=== PATIENT | female | born 1975 | race American Indian/Alaskan Native ===

== ENCOUNTER 2017-07-28 15:30 | Emergency (ER) | payer OTHER ==
[~2017-07-28] VITALS: Ht 167.6 cm; Wt 120.2 kg
[~2017-07-28 15:30] MED LIST: CELEBREX200 MG PO; ENBREL50 MG/1 M1 SQ; FLUTICASONE PRO16 GM NAS; FOLIC ACID1 MG PO; HYDROCODON-ACE1 EAC8 PO; KEFLEX500 MG PO; LEVAQUIN500 MG PO; LORATADINE10 MG PO; METFORMIN HCL500 MG PO; METHYLTREXATE; POTASSIUM GLUC500 MG PO; PREDNISONE5 MG PO; PRILOSEC20 MG PO; VITAMIN D350000 UNIT PO; ZANTAC150 MG PO; ZESTRIL20 MG PO; ZOFRAN ODT4 MG SL
[2017-07-28] MEDS ORDERED: ALLEGRA ALLERG180 MG PO (15:50)
[2017-07-28] MEDS ORDERED: MAGNESIUM400 M1 PO (15:52)
[2017-07-28] MEDS ORDERED: LIPITOR10 MG PO (15:52)
[2017-07-28] MEDS ORDERED: AUGMENTIN 875-1 EACH PO (15:53)
[2017-07-28] MEDS ORDERED: NORCO 5-325 TA1 EACH PO (17:24)
--- NOTE | 2017-07-28 18:03 | EKG ---
[facility] [address] [facility] [place] [address] Signed Normal sinus rhythm Normal ECG No previous ECGs available Confirmed by LEONARDO FABIAN MD ([id number]) on 07/28/2017 6:03:38 PM Electronically Signed By: LEONARDO FABIAN MD 07/28/17 1803 PATIENT NAME: MERLYN BROWN Electrocardiogram DATE OF : 75 PHYSICIAN: LEONARDO FABIAN MD REPORT #: [id number] REPORT IS CONFIDENTIAL AND NOT TO BE RELEASED WITHOUT AUTHORIZATION
== END 2017-07-28 17:30 | disposition home or self-care (01) ==
LOC: ED 15:30
DX: R07.89 Other chest pain (principal); E11.9 Type 2 diabetes mellitus without complications; I10 Essential (primary) hypertension; Z87.891 Personal history of nicotine dependence; Z90.49 Acquired absence of other specified parts of digestive tract; Z88.6 Allergy status to analgesic agent; Z88.5 Allergy status to narcotic agent; Z79.899 Other long term (current) drug therapy; Z79.84 Long term (current) use of oral hypoglycemic drugs
CPT/HCPCS: 71020; 80053; 84484; 85025; 93005; 93010; 99284

== ENCOUNTER 2018-02-26 05:40 | Day surgery (SDC) | payer OTHER ==
[~2018-02-26] VITALS: Ht 167.6 cm; Wt 124.7 kg
--- NOTE | ~2018-02-26 | OR ---
[facility] [address] [place], [place] [address] Draft DATE OF OPERATION: 02/26/2018 SURGEON: Guera Gamino DPM PREOPERATIVE DIAGNOSES: 1. Bunion deformity right foot. 2. Talar's bunion deformity. POSTOPERATIVE DIAGNOSES: 1. Bunion deformity right foot. 2. Talar's bunion deformity. PROCEDURES: 1. Lapidus bunionectomy, or first metatarsal cuneiform fusion with Junaid, or proximal phalanx osteotomy. 2. Reverse modified chevron osteotomy 5th metatarsal. RESPIRATORY THERAPIST ASSISTANT: Bennett Concepcion DPM. ANESTHESIA: Regional with MAC. COIN PURSE FRAMER: Gustavo Woody CRNA ESTIMATED BLOOD LOSS: Only approximately 5 mL. HEMOSTASIS: With an ankle tourniquet. MATERIALS UTILIZED: 3-0 Vicryl, 4-0 Vicryl, and surgical meenakshi. A locking plate with screws for the first metatarsal cuneiform, and a nitinol staple, and two cannulated screws. PROCEDURE IN DETAIL: Regional popliteal block was given prior to entering into the operating room. The patient was brought into the operating room and sedation presented, a local anesthesia block consisting of 18 mL of 1:1 mix 0.5% ropivacaine and 2% lidocaine plain were PATIENT NAME: MERLYN BROWN OPERATIVE REPORT DATE OF : 75 REPORT #: [id number] PHYSICIAN: GUERA GAMINO DPM PCP: MARVEL ESQUEDA REPORT IS CONFIDENTIAL AND NOT TO BE RELEASED WITHOUT AUTHORIZATION [facility] [address] [facility] [place] [place] [address] Draft injected about the patient's ankle region. This was to backup a popliteal block. The right foot was then scrubbed, prepped, and draped in the usual sterile technique. An Esmarch bandage was then wrapped around the foot, and ankle region, and the left wrapped around the ankle to act as a tourniquet. Attention was then directed to the dorsal aspect of the right first metatarsal phalangeal joint region where approximately a 5 cm incision was performed both parallel and medial to the tendon of the extensor hallucis longus. The incision was then deepened through the subcutaneous tissue with care being taken to identify, and retract vital neurovascular structures. Bleeders were cauterized, and ligated as necessary. Careful dissection continued down to the level of the joint capsule. This time a linear capsulotomy was performed near the original skin incision. The joint capsule was reflected both superior, and inferior, and thus exposing the articular surface at the surgical site. It should be noted that articular surface was white, uniform, with good coloration. Medial eminence was noted on the medial aspect of the first metatarsal head, as well as some hypertrophic capsule formation. The enlargement appeared to be noninvasive with normal coloration, just both thickened in bone, and fibrous tissue. Sagittal saw was utilized to reduce the medial eminence. Curved tenotomy was utilized to resect the thickened joint capsule on the medial aspect of the first metatarsal. Attention was then directed to the first metatarsal inner space between the first infected metatarsals via the original skin incision, both sharp, and blunt dissection were continued down to the level of the conjoint tendon of the adductor hallucis, and the fibular sesamoidal ligament. Utilizing a #64 blade, and a curved tenotomy, the deep transverse ligament, the lateral fibular sesamoid ligament, and the conjoint tendon of the adductor hallucis was freed from the soft tissue, from their bony attachments. First digit was easily moved into a more corrected position, reduction of the tension on the lateral aspect was observed. Also, by manipulating the first metatarsal it appeared as though the fibular sesamoid can slip easily underneath the first metatarsal head. Attention was then redirected to the dorsal aspect of the first metatarsal. The incision was extended proximally through the first metatarsal cuneiform region, careful dissection continued down to the level of the first metatarsal cuneiform joint. The soft tissue attachments around this joint area were freed thus exposing the articular surface. A bone distractor was then applied utilizing two K wires. This joint was then distracted, sagittal saw was utilized to denude cartilage from both sides of the joint region. More bony material was resected both laterally, and plantar. The adjacent aspects of bone was then fenestrated with K wire, and the articular surface area was flush with copious amounts of sterile normal saline. The joint was then reapproximated to a more corrected position of the first metatarsal. K wire was then driven from the base of the first metatarsal into the cuneiform to act as temporary fixation. Two of the K wire were driven from the first metatarsal head region into the second metatarsals to act as additional temporary fixation. Utilizing standard AO fixation techniques, a plate and threaded screws were then inserted, compression screw extending from the midportion of the plate through the first metatarsal and then leading to the second cuneiform was also utilized. Placement PATIENT NAME: MERLYN BROWN OPERATIVE REPORT DATE OF : 75 REPORT #: [id number] PHYSICIAN: GUERA GAMINO DPM PCP: MARVEL ESQUEDA REPORT IS CONFIDENTIAL AND NOT TO BE RELEASED WITHOUT AUTHORIZATION [facility] [address] [place], [place] [address] Draft of the hardware was visualized utilizing fluoroscopy. Upon completion of the first metatarsal correction it was observed that the digit still wanted to abduct, and interfered with the second digit. Therefore, an Junaid procedure was performed by extending the skin incision distally into the midportion of the proximal phalanx, a pie shaped wedge bone was then removed from the phalanx. The distal aspect of the toe was swung into more corrected medial position, and a nitinol surgical staple was inserted for fixation. Upon completion of the Junaid, the first digit was found to lie in a good position with deformities corrected. Attention was then directed to the dorsal aspect of the fifth metatarsal phalangeal joint region, or approximately a 4 cm linear incision was performed over the distal portion of the fifth metatarsal. The incision was then deepened through subcutaneous tissue care being taken to identify, retract the vital nerves, vascular structures. Bleeders were cauterized and ligated as necessary. Careful dissection down to the level of the joint capsule was performed and then utilizing a #64 blade, linear capsulotomy was performed, and the joint capsule reflected both superior and inferior, and the articular surface was exposed at the operative site. Good coloration was observed. Lateral eminence was noted on the fifth metatarsal head with normal trabeculation, normal coloration. Some hypertrophic capsule formation was also noted in this region. Hypertrophic capsule was resected utilizing the curved tenotomy. Portion of this capsule was sent to pathology for microscopic evaluation. K wire was inserted from the lateral to the medial aspect across the metaphyseal region of the fifth metatarsal. Sagittal saw was utilized to create a chevron type osteotomy with the dorsal wing of the osteotomy being much longer than the plantar. Upon completion of the osteotomy, the capital fragment of the fifth metatarsal was led into more corrected medial position, and backed upon the shaft of the fifth metatarsal. Two screws cannulated, one was sized 2.5, and the other was 2.0, were then inserted across the osteotomy site following standard AO fixation techniques. Interoperative fluoroscopy was utilized to verify position. The surgical sites were then closed utilizing 3-0 Vicryl to reapproximate joint capsule at this point, because the ankle tourniquet was removed, and prompt hyperemic response was noted. All digits of the patients right foot, subcutaneous tissue was then closed utilizing 4-0 Vicryl and the skin was reapproximated, and coapted utilizing surgical meenakshi at both surgical sites. Postoperative injection consisting of 5 mL of 0.5% ropivacaine and 1 mL of dexamethasone phosphate was injected about the surgical sites. The foot was then cleaned with sterile normal saline, and dried. Silver Mepilex dressing was applied over the surgical dressings followed by fluff, gauze, cast padding, and Coban. The patient had tolerated both the procedure, and the anesthesia well. Capillary refill time was less than three seconds to all digits of the right foot. The patient was transported to the recovery area where following the period of postoperative monitoring the patient was discharged to home with both written, and oral instructions. PATIENT NAME: MERLYN BROWN OPERATIVE REPORT DATE OF : 75 REPORT #: [id number] PHYSICIAN: GUERA GAMINO DPM PCP: MARVEL ESQUEDA REPORT IS CONFIDENTIAL AND NOT TO BE RELEASED WITHOUT AUTHORIZATION [address] [address] Draft DEONNA Arcos/[facility] [place] /[id number] Copies: ~ PATIENT NAME: MERLYN BROWN OPERATIVE REPORT DATE OF : 75 REPORT #: [id number] PHYSICIAN: GUERA GAMINO DPM PCP: MARVEL ESQUEDA REPORT IS CONFIDENTIAL AND NOT TO BE RELEASED WITHOUT AUTHORIZATION
[~2018-02-26 05:40] MED LIST changes: +ALLEGRA ALLERG180 MG PO; +AUGMENTIN 875-1 EACH PO; +LIPITOR10 MG PO; +MAGNESIUM400 M1 PO; +NORCO 5-325 TA1 EACH PO
--- NOTE | 2018-02-26 11:20 | NUR ---
[facility] PACU AWAKE WITH OXY MASK ON AT 4L. NO C/O'S. BLOOD SUGAR 163 NO ARRIVAL. ANESTHESIA AT BEDSIDE. 1020 OXY MASK REMOVED. 1025 UP TO BATHROOM WITH ONE PERSON ASSIST. VOIDED. BACK AT BEDSIDE AT 1040. XRAY IN DEPT. 3V XRAY OF R FOOT DONE. SIPPING ON WATER. 1045 PT GETTING DRESSED. 1050 FAMILY AT BEDSIDE. DC INSTRUCTIONS GIVEN TO PT/FAMILY X2. 1054 LEFT VIA W/C WITH BOOT ON R FOOT.
== END 2018-02-26 10:54 | disposition home or self-care (01) ==
LOC: OPS 05:40 → DS 05:40 → EDSTATUS 06:45 → DS 06:45 → OPS 10:54 → DS 10:54
PROVIDERS: Podiatrist Foot & Ankle Surgery
PROC: 0QBN0ZZ Excision of Right Metatarsal, Open Approach (ICD-10-PCS; 2018-02-26)
PROC: 0QBN0ZZ Excision of Right Metatarsal, Open Approach (ICD-10-PCS; 2018-02-26)
PROC: 0SGK04Z Fusion of Right Tarsometatarsal Joint with Internal Fixation Device, Open Approach (ICD-10-PCS; principal; 2018-02-26 06:45)
DX: M21.611 Bunion of right foot (principal); M21.621 Bunionette of right foot; M20.11 Hallux valgus (acquired), right foot; M19.071 Primary osteoarthritis, right ankle and foot; J45.909 Unspecified asthma, uncomplicated; E11.9 Type 2 diabetes mellitus without complications; I10 Essential (primary) hypertension; Z88.6 Allergy status to analgesic agent; Z79.899 Other long term (current) drug therapy
CPT/HCPCS: 01480; 62322; 64445; 73620; 73630; 76942; C1713; C1769; J0690; J1100; J2250; J2370; J2704; J2765; J2795; J3010; J7120

== ENCOUNTER 2018-12-30 06:45 | Day surgery (SDC) | payer OTHER ==
[~2018-12-30] VITALS: Ht 170.2 cm; Wt 127.0 kg
[~2018-12-30 06:45] MED LIST changes: +PRILOSEC OTC20 MG PO; -PRILOSEC20 MG PO; +VICTOZA 2-0.6 MG/0.1 SUB-Q; +VITAMIN D35000 UNIT PO
[2018-12-30] MEDS ORDERED: METHOTREXATE2.5 MG PO (07:03)
--- NOTE | 2018-12-30 08:55 | NUR ---
PATIENT ARRIVES BACK FROM IMAGING. WARM BLANKET GIVEN. IV RECONNECTED. FAMILY AT BEDSIDE.
--- NOTE | 2018-12-30 12:14 | NUR ---
12/30/18 1214 Sheets,Josie 1208 PT ARRIVED TO PACU ON 2L VIA NC, PT REACTIVE TO TACTILE STIMULI AND DENIES PAIN.
[2018-12-30] MEDS ORDERED: OXYCODON-ACETA1 EAC2 PO (12:20)
[2018-12-30] MEDS ORDERED: TYLENOL325 MG PO (12:20)
--- NOTE | 2018-12-30 13:06 | NUR ---
PATIENT'S FAMILY IS PAGED. JELLO, WATER AND ICE CHIPS GIVEN. PATIENT IS EATING AND DRINKING AND TOLERATING THAT WELL. CALL LIGHT W/IN REACH. PATIENT REQUESTS ONLY 1/2 TABLET FOR PAIN PRN.
--- NOTE | 2018-12-30 14:16 | NUR ---
SECOND 1/2 OF PRN FOR PAIN GIVEN. PATIENT IS UP TO THE BATHROOM W/RN STANDBY. PATIENT AMBULATES WELL AND DENIES DIZZINESS. PATIENT VOIDS AND REPORTS FEELING HER BLADDER IS EMPTY. SCANT AMOUNT OF URINE NOTED TO HAT. PATIENT REPORTS SHE BELIEVES SHE MISSED THE HAT. PATIENT IS BACK IN BED. MORE ICED WATER IS GIVEN. FAMILY REMAINS @ BEDSIDE. PATIENT DENIES ADDITIONAL NEEDS AT THIS TIME.
--- NOTE | 2018-12-31 10:55 | OR ---
[facility] [address] [place], [place] [address] Signed DATE OF OPERATION: 12/30/2018 SURGEON: Johanne Sousa MD PREOPERATIVE DIAGNOSES: 1. Left upper outer quadrant abnormal mammogram (microcalcifications), not amenable to image-guided core biopsy. 2. Morbid obesity. POSTOPERATIVE DIAGNOSES: 1. Left upper outer quadrant abnormal mammogram (microcalcifications), not amenable to image-guided core biopsy. 2. Morbid obesity. PROCEDURE PERFORMED: Left needle localized excisional breast biopsy. ANESTHESIA: General LMA; steven Wick CRNA. INDICATION: This morbidly obese 43-year-old woman underwent screening mammogram under the direction of ÁNGEL Paniagua, at [facility]. She was found to have microcalcifications. They were not considered amenable to core biopsy by image guidance by the radiologist. On that basis, a needle-localized excisional biopsy has been recommended. The risks of bleeding, infection, cosmetic deformity, need for additional treatment and other unforeseen complications were reviewed with the patient in detail. She understands and wished to proceed with needle localized excisional biopsy. FINDINGS: Good wire localization was noted. Wire emanating from the lateral aspect of the left breast in the natural breast crease. This site was used as incision as well. Wide excision was undertaken. The specimen radiograph during operation confirmed the lesion to be in the specimen excised. There was no untoward bleeding. The breast was mostly replaced with fat. I felt no suspicious mass with the excised tissue. DESCRIPTION OF PROCEDURE: The patient was brought to the operating room after being received from the radiology suite with the wire emanating from the left breast. She was given a general anesthetic by LMA technique. Preoperative antibiotic Ancef was given. Sequential compression Electronically Signed By: JOHANNE SOUSA MD 12/31/18 1055 PATIENT NAME: MERLYN BROWN OPERATIVE REPORT DATE OF : 75 REPORT #: [id number] PHYSICIAN: JOHANNE SOUSA MD PCP: MARVEL ESQUEDA REPORT IS CONFIDENTIAL AND NOT TO BE RELEASED WITHOUT AUTHORIZATION [facility] [address] [place], [place] [address] Signed device stockings used and heparin subcutaneously administered. Review of her radiographs showed that the wire to be well localized in relation to the microcalcifications in question. The needle was trimmed and spray preparation of breast was undertaken with Betadine spray solution. The area was draped sterilely. A curvilinear incision was made along the line of natural skin crease in the lateral aspect of the breast. Dissection carried through the dermis with electrocautery. The wire delivered into the wound. An Allis clamp was used to grasp the parenchyma of the breast in continuity with the wire and using wide excision using electrocautery device, excision was undertaken. The specimen was excised beyond the needle tip. The specimen was oriented with a short stitch superior, long stitch lateral and sent for specimen radiograph. It was later reported by Dr. Zimmer that the microcalcifications in question were included in the excised specimen. Irrigation was undertaken in the depths of the wound. There was no sign of bleeding. The wound was closed in layers with interrupted 2-0 Vicryl and a running subcuticular 3-0 Vicryl for the skin. Steri-Strips were applied as was a Mepilex silver sponge dressing and an OpSite. She tolerated procedure well. There was essentially no blood loss. MD JASSON Batista/[facility] /[id number] cc: ÁNGEL Edwards Copies: MARVEL ESQUEDA ~ Electronically Signed By: JOHANNE SOUSA MD 12/31/18 1055 PATIENT NAME: MERLYN BROWN OPERATIVE REPORT DATE OF : 75 REPORT #: [id number] PHYSICIAN: JOHANNE SOUSA MD PCP: MARVEL ESQUEDA REPORT IS CONFIDENTIAL AND NOT TO BE RELEASED WITHOUT AUTHORIZATION
== END 2018-12-30 14:25 | disposition home or self-care (01) ==
LOC: DS 06:45 → OPS 06:45 → EDSTATUS 08:30 → MAM 08:30 → OPS 14:25
PROVIDERS: Surgery
PROC: 0HBU0ZX Excision of Left Breast, Open Approach, Diagnostic (ICD-10-PCS; principal; 2018-12-30 09:30)
DX: N60.32 Fibrosclerosis of left breast (principal); N60.02 Solitary cyst of left breast; N60.92 Unspecified benign mammary dysplasia of left breast; E66.01 Morbid (severe) obesity due to excess calories; E11.9 Type 2 diabetes mellitus without complications; E78.5 Hyperlipidemia, unspecified; K21.9 Gastro-esophageal reflux disease without esophagitis; I10 Essential (primary) hypertension; M06.89 Other specified rheumatoid arthritis, multiple sites; J45.909 Unspecified asthma, uncomplicated; Z88.6 Allergy status to analgesic agent; Z88.5 Allergy status to narcotic agent; Z79.899 Other long term (current) drug therapy; Z68.41 Body mass index [BMI] 40.0-44.9, adult; Z87.891 Personal history of nicotine dependence; Z79.52 Long term (current) use of systemic steroids
CPT/HCPCS: 00404; 76098; J0690; J1100; J1644; J1885; J2250; J2405; J2704; J3475; J7120

== ENCOUNTER 2019-06-07 11:28 | Emergency (ER) | payer OTHER ==
[~2019-06-07] VITALS: Ht 170.2 cm; Wt 122.5 kg
--- OUTSIDE RECORDS SUMMARY | ~2019-06-07 | XMS | Clinical Summary ---
Demographics + + + | Address | [address] | | | [place] [address] | + + + | Home Phone | | + + + | Preferred Language | Unknown | + + + | Marital Status | Single | + + + | Yazidi Affiliation | Unknown | + + + | Race | Unknown | + + + | Ethnic Group | Unknown | + + + Author + + + | Author | [facility] | | | and [place] | + + + | Organization | [facility] | | | and [place] | + + + | Address | Unknown | + + + | Phone | Unavailable | + + + Support + + +---------+ + | Name | Relationship | Address | Phone | + + +---------+ + | Aletha Myles | ECON | Unknown | | + + +---------+ + Care Team Providers + +------+ + | Care Legal Stenographer Name | Role | Phone | + +------+ + | Pcp, Prov Inactive | PCP | | + +------+ + Allergies Not on File Medications Not on file Active Problems + + + | Problem | Noted Date | + + + | Other chest pain | 04/02/2014 | + + + Social History + +-------+ +--------+------+ | Tobacco Use | Types | Packs/Day | Years | Date | | | | | Used | | + +-------+ +--------+------+ | Never Assessed | | | | | + +-------+ +--------+------+ + + + | Sex Assigned at | Date Recorded | | | | + + + | Not on file | | + + + + + + + | Job Start Date | Occupation | Industry | + + + + | Not on file | Not on file | Not on file | + + + + + + + + | Travel History | Travel Start | Travel End | + + + + + + | No recent travel history available. | + + Last Filed Vital Signs + + + + | Vital Sign | Reading | Time Taken | + + + + | Blood Pressure | - | - | + + + + | Pulse | - | - | + + + + | Temperature | - | - | + + + + | Respiratory Rate | - | - | + + + + | Oxygen Saturation | - | - | + + + + | Inhaled Oxygen | - | - | | Concentration | | | + + + + | Weight | 130.2 kg (287 lb) | 2014 1000 PDT | + + + + | Height | - | - | + + + + | Body Mass Index | - | - | + + + + Plan of Treatment +--------+---------+ + + + | Date | Type | Specialty | Care Team | Description | +--------+---------+ + + + | 07/06/ | Office | Neurology | Edin Blancas MD [address] | | | 2019 | Visit | | [address] | | | | | | [address] [address] | | | | | | [place] [address] | | | | | | [phone] | | | | | | | | +--------+---------+ + + + + + + + + | Health Maintenance | Due Date | Last Done | Comments | + + + + + | Vaccine: | | | | | Dtap/Tdap/Td (1 - | 4 | | | | Tdap) | | | | + + + + + | Cervical Cancer | | | | | Screening (Pap) | 5 | | | + + + + + | Vaccine: Influenza | | | | | (#1) | 9 | | | + + + + + Results Not on filefrom Last 3 Months Insurance + +--------+ +--------+ +---------+--------+ | Payer | Benefi | Subscriber | Effect | Phone | Address | Type | | | t Plan | ID | azra | | | | | | / | | Dates | | | | | | Group | | | | | | + +--------+ +--------+ +---------+--------+ | [employer] | HEALTH | [id number] | | [phone] | | PPO | | | COMP | | 014-Pr | 7 | | | | | PPO | | esent | | | | + +--------+ +--------+ +---------+--------+ | [facility] | IHS | [id number] | | | | Indemn | | SERVICE | YELLOW | | 014-Pr | | | ity | | | HAWK | | esent | | | | + +--------+ +--------+ +---------+--------+ + +--------+ +--------+ + + | Guarantor Name | Accoun | Relation to | Date | Phone | Billing Address | | | t Type | Patient | of | | | | | | | | | | + +--------+ +--------+ + + | Miguel Ángel Myles | Person | Self | [birth year] | [address] | | | jacob/Rojelio | | 1975 | [phone] | [place] [address] | | | aletha | | | 2 (Home) | | + +--------+ +--------+ + + Advance Directives Patient has advance care planning documents on file. For more information, please contact:[facility] [place] [address]"
--- OUTSIDE RECORDS SUMMARY | ~2019-06-07 | XMS | Clinical Summary ---
Demographics + + + | Address | [address] | | | [place] [address] | + + + | Home Phone | | + + + | Preferred Language | Unknown | + + + | Marital Status | Unknown | + + + | Confucianism Affiliation | Unknown | + + + | Race | Unknown | + + + | Ethnic Group | Unknown | + + + Author + + + | Author | [facility] (Historical as of | | | 04-25-19) | + + + | Organization | [facility] (Historical as of | | | 04-25-19) | + + + | Address | Unknown | + + + | Phone | Unavailable | + + + Care Team Providers + +------+ + | Care Clam Bed Laborer Name | Role | Phone | + +------+ + PP | Unavailable | + +------+ + Allergies Not on File Current Medications Not on file Active Problems Not on file Social History + +-------+ +--------+------+ | Tobacco [...] on file | | + + + Last Filed Vital Signs + + + + | Vital Sign | Reading | Time Taken | + + + + | Blood Pressure | 132/76 | 10/05/2009 1:05 PM PST | + + + + | Pulse [...] + + + + | Weight | 84.8 kg (187 lb) | 10/05/2009 1:05 PM PST | + + + + | Height | - | - | + + + + | Body Mass Index | - | - | + + + + Plan of Treatment +--------+---------+ + + + | Date | Type | Specialty | Care Team | Description | +--------+---------+ + + + | 07/06/ | Office | | Edin Blancas MD [address] | | | 2018 | Visit | | [facility] | | | | | | [place] [address] | | | | | | [phone] | | | | | | | [...] + + | Vaccine: Influenza | | 05/23/2018, 06/10/2017 | | | (#1) | 9 | | | + + + + + Results Not on filefrom Last 3 Months Insurance + +--------+ +------+-------+---------+ | Payer | Benefi | Subscriber | Type | Phone | Address | | | t Plan | ID | | | | | | / | | | | | | | Group | | | | | + +--------+ +------+-------+---------+ | COMMERCIAL OTHER | COMMER | [id number] | | | | | | CIAL | | | | | | | GENERI | | | | | | | C PLAN | | | | | + +--------+ +------+-------+---------+ + +--------+ +--------+ + + | Guarantor Name | Accoun | Relation to | Date | Phone | Billing Address | | | t Type | Patient | of | | | | | | | | | | + +--------+ +--------+ + + | MERLYN MYLES | Person | Self [birth year] | Home: | [address] | | | al/Fam | | 1974 | [phone] | [place] [address] | | | aeltha | | | [phone] | | + +--------+ +--------+ + +"
--- OUTSIDE RECORDS SUMMARY | ~2019-06-07 | XMS | Clinical Summary ---
Demographics + + + | Address | [address] | | | [place] [address] | + + + | Home Phone | | + + + | Preferred Language | Unknown | + + + | Marital Status | Unknown | + + + | Mormon Affiliation | Unknown | + + + | Race | Unknown | + + + | Ethnic Group | Unknown | + + + Author + + + | Author | [facility] (Historical as of | | | 04-25-19) | + + + | Organization | [facility] (Historical as of | | | 04-25-19) | + + + | Address | Unknown | + + + | Phone | Unavailable | + + + Care Team Providers + +------+ + | Care Body Worker Name | Role | Phone | + [...] | 2018 | Visit | | [facility] | | | | | | [place] [address] | | | | | | [phone] | | | | | | | [...] +------+-------+---------+ | COMMERCIAL OTHER | COMMER | [id number] | | | | | | CIAL [...] | | al/Fam | | 1974 | [phone] | [place] [address] | | | aletha | | | [phone] | | + +--------+ +--------+ + +"
--- OUTSIDE RECORDS SUMMARY | ~2019-06-07 | XMS | Clinical Summary ---
Demographics + + + | Address | [address] | | | [place] [address] | + + + | Home Phone | | + + + | Preferred Language | Unknown | + + + | Marital Status | Single | + + + | Adventism Affiliation | Unknown | + + + | Race | Unknown | + + + | Ethnic Group | Unknown | + + + Author + + + | Author | [facility] | | | and [place] | + + + | Organization | [facility] | | | and [...] Team Providers + +------+ + | Care Audio Tape Librarian Name | Role | Phone | + [...] | | | | | | [place] [phone] | | | | | | [phone] | | | | | | | [...] +--------+ +---------+--------+ | [employer] | HEALTH | [id number] | | [phone] | | PPO | | | COMP | | [id number]-Pr | 7 | | | | | PPO | | esent | | | | + +--------+ +--------+ +---------+--------+ | [facility] | IHS | [id number] | | | | Indemn | | [...] | | jacob/Rojelio | | 1975 | [phone] | [place] [address] | | | aletha | | | 2 (Home) | | + +--------+ +--------+ + + Advance Directives Patient has advance care planning documents on file. For more information, please contact:[facility] [place] [address]"
[~2019-06-07 11:28] MED LIST changes: +METHOTREXATE2.5 MG PO; +OXYCODON-ACETA1 EAC2 PO; +TYLENOL325 MG PO
--- OUTSIDE RECORDS SUMMARY | 2019-06-07 11:30 | XMS ---
PreManage Notification: MERLYN MYLES Security Reception Specialist Events No recent Security Events currently on file CRITERIA MET - A[facility]U CARE PROVIDERS Cale Lincolnzara Myles Primary Care Current PHONE: Unknown Nimisha Spain Primary Care Callie TOLEDO PHONE: [phone] silvina Case or Affirmative Action Specialist Current PHONE: Unknown Apolonia Purvis Current Orthopedic Surgery \T\ Fracture Clinic PHONE: Unknown Alpesh has no Care Guidelines for this patient. Stu VISIT COUNT (12 MO.) 1 DIMITRIS Trevino TOTAL 1 NOTE: Visits indicate total known visits. ED/UCC VISIT TRACKING (12 MO.) 06/07/2019 11:29 DIMITRIS N[place] OR TYPE: Emergency COMPLAINT: - LEFT ARM PAIN, INJ INPATIENT VISIT TRACKING (12 MO.) No inpatient visits to display in this time frame [email or web address]
[2019-06-07] MEDS ORDERED: LIDOCAINE1 EACH TOP (12:26)
== END 2019-06-07 12:56 | disposition home or self-care (01) ==
LOC: ED 11:28
DX: M79.602 Pain in left arm (principal); I10 Essential (primary) hypertension; E11.9 Type 2 diabetes mellitus without complications; Z88.5 Allergy status to narcotic agent; Z88.6 Allergy status to analgesic agent; Z79.52 Long term (current) use of systemic steroids; Z79.84 Long term (current) use of oral hypoglycemic drugs; Z79.899 Other long term (current) drug therapy
CPT/HCPCS: 99283

== ENCOUNTER 2021-01-09 23:32 | Emergency (ER) | payer OTHER ==
[~2021-01-09] VITALS: Ht 170.2 cm; Wt 121.1 kg
[~2021-01-09 23:32] MED LIST changes: +LIDOCAINE1 EACH TOP
--- NOTE | 2021-01-10 22:46 | EKG ---
[facility] [address] [place] [address] Signed Normal sinus rhythm Normal ECG When compared with ECG of 29-DEC-2018 11:35, No significant change was found Confirmed by LEEANNA GOMEZ MD ([id number]) on 01/10/2021 10:46:37 PM Electronically Signed By: LEEANNA GOMEZ MD 01/10/21 2246 PATIENT NAME: KEVINHAKEEMKyle GUTIERREZ Electrocardiogram DATE OF : 75 PHYSICIAN: LEEANNA GOMEZ MD REPORT #: [id number] REPORT IS CONFIDENTIAL AND NOT TO BE RELEASED WITHOUT AUTHORIZATION
== END 2021-01-10 03:53 | disposition home or self-care (01) ==
LOC: ED 23:32
DX: R07.89 Other chest pain (principal); E11.9 Type 2 diabetes mellitus without complications; I10 Essential (primary) hypertension; Z88.6 Allergy status to analgesic agent; Z88.8 Allergy status to other drugs, medicaments and biological substances; Z88.5 Allergy status to narcotic agent; Z79.52 Long term (current) use of systemic steroids; Z79.84 Long term (current) use of oral hypoglycemic drugs; Z79.899 Other long term (current) drug therapy
CPT/HCPCS: 71045; 80053; 83735; 84484; 85025; 85379; 93005; 93010; 99285-25

== ENCOUNTER 2021-06-26 15:03 | Emergency (ER) | payer OTHER ==
[~2021-06-26] VITALS: Ht 170.2 cm; Wt 121.1 kg
--- OUTSIDE RECORDS SUMMARY | 2021-06-26 15:10 | XMS ---
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 Care History Medical/Surgical 06/08/2019 [facility] PATIENT- [facility] ELIGIBLE \T\middot;\T\nbsp; PLEASE REFER PATIENT TO [facility] FOR NON EMERGENT MEDICAL NEEDS. \T\middot;\T\nbsp; [facility] CAN SEE PATIENTS SAME DAY FOR APTS IF PATIENT CALLS FIRST THING IN THE MORNING. E.D. VISIT COUNT (12 MO.) 2 [facility] TOTAL 2 NOTE: Visits indicate total known visits. ED/UCC VISIT TRACKING (12 MO.) 06/26/2021 15:07 [facility] TYPE: Emergency COMPLAINT: - R FOOT INJURY 01/09/2021 23:33 [facility] TYPE: Emergency COMPLAINT: - CHEST PAIN DIAGNOSES: - Type 2 diabetes mellitus without complications - Allergy status to narcotic agent - detention (current) use of oral hypoglycemic drugs - Essential (primary) hypertension - Other halfway (current) drug therapy - Allergy status to other drugs, medicaments and biological substances - Allergy status to analgesic agent - detention (current) use of systemic steroids - Other chest pain INPATIENT VISIT TRACKING (12 MO.) No inpatient visits to display in this time frame [email or web address]
== END 2021-06-26 16:18 | disposition home or self-care (01) ==
LOC: ED 15:03
DX: S90.31XA Contusion of right foot, initial encounter (principal); E11.9 Type 2 diabetes mellitus without complications; I10 Essential (primary) hypertension; M06.9 Rheumatoid arthritis, unspecified; W55.19XA Other contact with horse, initial encounter; Z88.5 Allergy status to narcotic agent; Z88.6 Allergy status to analgesic agent; Z79.52 Long term (current) use of systemic steroids; Z79.84 Long term (current) use of oral hypoglycemic drugs; Z79.899 Other long term (current) drug therapy
CPT/HCPCS: 73630; 99283-25

== ENCOUNTER 2023-05-26 08:48 | Day surgery (SDC) | payer OTHER ==
[~2023-05-26] VITALS: Ht 170.2 cm; Wt 118.2 kg
[~2023-05-26 08:48] MED LIST changes: +ACETAMINOPHEN500 MG PO; +ACTEMRA AC162 MG/0.9 SUB-Q; +AMARYL4 MG PO; +ANTACID168 MG PO; +CELECOXIB200 MG PO; +COZAAR100 MG PO; +ENBREL25 MG SUB-Q; +GABAPENTIN300 MG PO; +GABAPENTIN600 MG PO; +GLYBURIDE MICRON6 MG PO; +HYDROCODON-ACE1 EA10 PO; +JARDIANCE10 MG PO; +LORADAMED10 MG PO; +OXYCODONE HCL5 MG PO; +SENNA LAX8.6 MG PO; +TOUJEO SOL300 UNIT/1 SUB-Q; +XARELTO10 MG PO
--- OUTSIDE RECORDS SUMMARY | 2023-05-26 08:51 | XMS ---
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 Care History Medical/Surgical 06/08/2019 [facility] PATIENT- [facility] ELIGIBLE \T\middot;\T\nbsp; PLEASE REFER PATIENT TO [facility] FOR NON EMERGENT MEDICAL NEEDS. \T\middot;\T\nbsp; [facility] CAN SEE PATIENTS SAME DAY FOR APTS IF PATIENT CALLS FIRST THING IN THE MORNING. [facility] MO[facility] TOTAL 2 NOTE: Visits indicate total known visits. ED/UCC VISIT TRACKING (12 MO.) 05/26/2023 08:49 [facility] TYPE: Emergency COMPLAINT: - COLD SYMPTOMS 10/20/2022 02:05 [facility] [place] (ID) TYPE: Emergency COMPLAINT: - ABD PAIN DIAGNOSES: 1. Unspecified abdominal pain 2. Hydronephrosis with renal and ureteral calculous obstruction 3. Personal history of nicotine dependence 4. Diverticulitis of intestine, part unspecified, without perforation or abscess without bleeding 5. Urinary tract infection, site not specified 6. Contact with and (suspected) exposure to COVID-19 INPATIENT VISIT TRACKING (12 MO.) No inpatient visits to display in this time frame [email or web address]
[2023-05-26 09:39] LABS: BILIRUBIN, URINE NEGATIVE (negative); BLOOD/HGB, URINE SMALL (Negative); KETONE, URINE NEGATIVE (Negative); LEUK ESTERASE, URINE MODERATE (negative); NITRITE, URINE POSITIVE (negative); PH, URINE 5.5 (5-7)
[2023-05-26 09:42] LABS: INFLUENZA B NAA NEGATIVE (NEGATIVE); RESPIRATORY SYNCYTIAL VIR NAA NEGATIVE (NEGATIVE)
[2023-05-26 09:47] LABS: BACTERIA, URINE 4+ /hpf (negative); CRYSTALS, URINE NONE SEEN (0-1+); EPITHELIAL CELLS, URINE SQUAMOUS 1+ /lpf (0-1+); WHITE BLOOD CELLS, URINE 41-50 /HPF (0-5)
[2023-05-26 09:48] LABS: CASTS, URINE NONE SEEN \\lpf; COLLECTION TYPE, URINE CLEAN CATCH; REFLEX CULTURE, URINE Yes (No)
[2023-05-26 10:24] LABS: BASOPHILS 0.1 % (0-2); EOSINOPHILS 0.6 % (0-6); LYMPHOCYTES 12.5 % (24-44); MCH 25.4 (27-36); MCHC 32.3 g/dl (30-36); MCV 78.7 fl (81-99); MONOCYTES 10.5 % (0-12); NEUTROPHILS 76.3 % (39-80); PLATELET COUNT 202 K/uL (140-440); RBC 4.32 M/ul (4.3-5.7); RDW 18.6 (10.5-15.0)
[2023-05-26 10:33] LABS: ANION GAP 10.9 (7-21); BUN/CREATININE RATIO 12.94 (6.0-28.6); CREATININE, SERUM 0.85 mg/dL (0.55-1.02); POTASSIUM 3.9 mmol/L (3.5-5.1)
[2023-05-26] MEDS ORDERED: PAXLOVID 300-11 EACH PO ×2 (11:56→12:50)
[2023-05-26 15:45] VITALS: BP 129/72
[2023-05-26 16:17] VITALS: BP 110/65
[2023-05-26 17:18] VITALS: BP 133/70
[2023-05-26 18:21] VITALS: BP 146/81
[2023-05-26 19:57] VITALS: BP 135/71
[2023-05-27 00:53] VITALS: BP 137/63
[2023-05-27 04:54] VITALS: BP 141/60
[2023-05-27 06:04] LABS: HEMATOCRIT 32.8 % (35.0-50.0); HEMOGLOBIN 10.3 g/dL (12.0-18.0); MCHC 31.5 g/dl (30-36); MCV 79.6 fl (81-99); PLATELET COUNT 205 K/uL (140-440); RBC 4.12 M/ul (4.3-5.7); RDW 18.4 (10.5-15.0)
[2023-05-27 06:15] LABS: ANION GAP 14.7 (7-21); CALCIUM 8.8 mg/dL (8.5-10.1); CREATININE, SERUM 0.8 mg/dL (0.55-1.02); POTASSIUM 3.7 mmol/L (3.5-5.1)
[2023-05-27 06:24] LABS: LYMPHOCYTES, MANUAL DIFF 15; MONOCYTES, MANUAL DIFF 2; NEUTROPHILS, MANUAL DIFF 83
--- NOTE | 2023-05-27 08:17 | OR ---
[facility] [address] [place], [place] [address] Signed DATE OF OPERATION: 05/26/2023 SURGEON: Rowan Pierce MD PREOPERATIVE DIAGNOSIS: 1. Obstructing 5 mm right ureteral calculus with associated hydroureteronephrosis. 2. Active urinary tract infection. 3. Left flank pain with fevers for 1 week. POSTOPERATIVE DIAGNOSES: 1. Obstructing 5 mm right ureteral calculus with associated hydroureteronephrosis. 2. Active urinary tract infection. 3. Left flank pain with fevers for 1 week. 4. Early urosepsis. NAME OF PROCEDURE: Diagnostic cystoscopy with left ureteral stent insertion. ANESTHESIA: General. ESTIMATED BLOOD LOSS: None. COMPLICATIONS: None. SPECIMENS: None. DRAINS: A 6 x 26 cm double-J ureteral stent inserted in the left collecting system. INDICATIONS FOR PROCEDURE: Ms. Myles is a very pleasant 48-year-old female, who is well-known to me with a history of nephrolithiasis. In fact, she underwent right ureteral calculus extraction earlier this year in December. She presented to the emergency department today with a 1-week history of left-sided flank pain that had been progressively worsening in nature. Her mother reports to me that she had been experiencing intermittent fevers up to 102 degrees as recently as 3 days ago, however, the patient was refusing to seek treatment. Electronically Signed By: ROWAN PIERCE MD 05/27/23 0817 PATIENT NAME: MERLYN MYLES OPERATIVE REPORT DATE OF : 75 REPORT #: [id number] PHYSICIAN: ROWAN PIERCE MD PCP: AB[facility] LOVE REPORT IS CONFIDENTIAL AND NOT TO BE RELEASED WITHOUT AUTHORIZATION [facility] [address] [place] [id number] Signed She felt poorly enough this morning that she came into the emergency department with left flank pain and congestive symptoms. She was diagnosed COVID positive at that time. A CT scan revealed an obstructing 5 mm left proximal ureteral calculus with associated mild hydroureteronephrosis and perinephric stranding. She had been n.p.o. since late last night, so the decision was made to take her emergently to the operating room to undergo cystoscopy with left ureteral stent insertion. OPERATIVE FINDINGS: 1. On cystoscopy, there was no evidence of any suspicious masses, lesions, or stones. Bilateral ureteral orifices are in their normal anatomic location. 2. A 6 x 26 cm double-J ureteral stent was inserted in the left collecting system under direct visualization without difficulty. Efflux of purulent material was noted once the stent was in good position. DESCRIPTION OF PROCEDURE: After informed consent was obtained, the patient was taken back to the operating room. She was transferred from the [facility] to the OR table where general anesthesia was induced. She was placed in the dorsal lithotomy position and her genitalia were prepped and draped in standard sterile fashion. Using a 30-degree lens on a 22.5-Kinyarwanda introducer, rigid cystoscope was inserted through the urethra and into her bladder under direct visualization. Panendoscopic views of the bladder were then obtained. Please see above findings. Attention was turned to left ureteral orifice. I passed a 0.035 Sensor wire through the left ureteral orifice and up in the left collecting system. I confirmed adequate placement of the wire on fluoroscopy. Over the wire, I passed a 6 x 26 cm double-J ureteral stent into the left collecting system under direct visualization. Once I pulled the wire, I could see an adequate proximal coil within the left collecting system on fluoroscopy. The patient's bladder was then drained and the cystoscope was removed. The procedure was then terminated. The patient tolerated the procedure well without any complication. She will now be transferred to the postanesthesia care unit in stable condition. DISPOSITION: Since the patient did spike a fever again just prior to her procedure, she will be staying the night for closer observation. She will continue her IV Rocephin with her next dose of 2 g tomorrow morning. Her diabetic diet will be slowly advanced as tolerated. She has also been given IV fluids, antiemetics, and pain control. Her mother will bring her Paxlovid to the hospital where she will begin Paxlovid for her known COVID infection. I explained to the mother today that the patient will need to maintain her stent for at least a month until she fully recovers from COVID as per hospital protocol. She will likely be placed back on the OR schedule in mid June to undergo definitive stone extraction, which will include a left ureteroscopy with laser lithotripsy and basket extraction of stone fragments with a left ureteral stent Electronically Signed By: ROWAN PIERCE MD 05/27/23 0817 PATIENT NAME: MERLYN MYLES OPERATIVE REPORT DATE OF : 75 REPORT #: [id number] PHYSICIAN: ROWAN PIERCE MD PCP: [facility] LOVE REPORT IS CONFIDENTIAL AND NOT TO BE RELEASED WITHOUT AUTHORIZATION [address] [address] Signed exchange. In the interim, once she recovers here in the hospital, she will go home on two weeks worth of Levaquin 500 mg daily and will also be given oxycodone 5 mg q.6 hours as needed for pain. Rowan Pierce MD AR/MODL /[id number] Copies: ~ Electronically Signed By: ROWAN PIERCE MD 05/27/23 0817 PATIENT NAME: MERLYN MYLES OPERATIVE REPORT DATE OF : 75 REPORT #: [id number] PHYSICIAN: ROWAN PIERCE MD PCP: [facility] LOVE REPORT IS CONFIDENTIAL AND NOT TO BE RELEASED WITHOUT AUTHORIZATION
[2023-05-27] MEDS ORDERED: OXYCODONE HCL5 MG PO (09:58)
[2023-05-27] MEDS ORDERED: LEVOFLOXACIN500 MG PO (10:00)
[2023-05-27] MEDS ORDERED: PYRIDIUM200 MG PO (10:03)
[2023-05-27 10:29] VITALS: BP 146/78
[2023-05-27 12:36] VITALS: BP 127/75
--- NOTE | 2023-05-27 21:19 | EKG ---
[facility] [address] [facility] [place] [address] Signed Normal sinus rhythm Increased R/S ratio in V1, consider early transition or posterior infarct Abnormal ECG When compared with ECG of 10-DEC-2022 08:41, No significant change was found Confirmed by Juan F Rosenthal MD () on 05/27/2023 9:19:14 PM Electronically Signed By: JUAN F ROSENTHAL MD 05/27/23 2119 PATIENT NAME: MERLYN BROWN Electrocardiogram DATE OF : 75 PHYSICIAN: JUAN F ROSENTHAL MD REPORT #: [id number] REPORT IS CONFIDENTIAL AND NOT TO BE RELEASED WITHOUT AUTHORIZATION
== END 2023-05-27 12:50 | disposition home or self-care (01) ==
LOC: ED 08:48 → DS 13:14 → MS 13:15 → DS 05-27 12:50
PROVIDERS: Emergency Medicine; ATTEND Urology
PROC: 0T9680Z Drainage of Right Ureter with Drainage Device, Via Natural or Artificial Opening Endoscopic (ICD-10-PCS; principal; 2023-05-26 14:18)
DX: A41.9 Sepsis, unspecified organism (principal); U07.1 COVID-19; N13.6 Pyonephrosis
CPT/HCPCS: 00910; 36415; 74176; 76000; 80048; 81001; 83605; 85025; 87088; 87502; 94762; 96365; 96375; 99285-25; A9270; C1769; C2617; C9803; J0330; J0696; J1100; J1170; J1815; J1885; J2250; J2405; J2704; J2765; J3010; J7121; J7512; U0002

== ENCOUNTER 2023-07-08 06:50 | Day surgery (SDC) | payer OTHER ==
[2023-07-01 14:36] VITALS: BP 126/80
[~2023-07-08] VITALS: Ht 170.2 cm; Wt 120.0 kg
[~2023-07-08 06:50] MED LIST changes: +ACTEMRA AC162 MG/0.9 SQ; +CLARITIN10 M2 PO; +LEVOFLOXACIN500 MG PO; +PAXLOVID 300-11 EACH PO; +PREDNISONE20 MG PO; +PYRIDIUM200 MG PO; +RYBELSUS3 MG PO
[2023-07-08 07:08] VITALS: BP 120/64
--- NOTE | 2023-07-08 07:43 | NUR ---
PT DENIED NEEDS. MALE SYSTEM TRAINER ADMITTED TO NERVOUSNESS. BOTH CONSENTED TO PRAYER. PRAYED FOR SUCCESSFUL PROCEDURE AND AWARENSS OF DIVINE PRESENCE.
--- NOTE | 2023-07-08 09:27 | NUR ---
07/08/23 0927 Josefina [place] 0916-PT ARRIVES TO PACU ON 6 L VIA MASK. PT AWAKE AND DENIES PAIN/NAUSEA. REPORT FROM HONORIO LOPEZ. VSS. PT RESTINGBAC IN BED WITH EYES CLOSED. 0920-PT MOVED TO RA AND SATS >90%. 0926-PT DENIES PAIN/NAUSEA. AT BEDSIDE. VSS
[2023-07-08 10:12] VITALS: BP 132/58
--- NOTE | 2023-07-08 10:45 | NUR ---
1007: PT RETURNS TO UNIT VIA STRETCHER FROM RECOVERY ROOM. DROWSY ON ARRIVAL BUT WAKES TO ANSWER QUESTIONS APPROPRIATELY. VSS, RESP EVEN AND UNLABORED. DENIES PAIN. REPORTS SOME REMAINING BUT IMPROVING NAUSEA. LIGHTS DIMMED FOR PT COMFORT AND POC DISCUSSED. PT AGREEABLE AT THIS TIME. ICE WATER AND CRACKERS PROVIDED FOR WHEN READY. PT COMFORTABLE WITHOUT NEEDS CURRENTLY. CALL LIGHT WITHIN REACH
[2023-07-08 11:05] VITALS: BP 134/64
--- NOTE | 2023-07-08 11:34 | NUR ---
1105: PT AWAKE AND ALERT IN STRETCHER. VSS, RESP EVEN AND UNLABORED. ATTENTIVE AT THE BEDSIDE. CONTS TO DENY PAIN BUT REPORTS LINGERING NAUSEA WITHOUT EMESIS. ORDER RECEIVED FROM HONORIO STAFFORD FOR 0.625MG DROPERIDOL IV ONCE. PHARMACY NOTIFIED. PT WITH URGE TO URINATE. DANGLED AT THE BEDSIDE, SHUBHAM WELL. DENIES DIZZINESS AND SOB. AMBULATES TO WITH STANDBY FROM THIS RN, STEADY GAIT. SUCCESSFUL FIRST POSTOP VOID, 125MLS. RED URINE, NO CLOTS NOTED. PT BACK TO STRETCHER. SCDS IN PLACE. ANTIEMETIC PROVIDED. PT TO CALL WITH FURTHER NEEDS. CALL LIGHT WITHIN REACH
--- NOTE | 2023-07-08 12:00 | NUR ---
1200: PT USES CALL LIGHT TO NOTIFY RN OF URGE TO VOID. SCD'S DISCONNECTED AND PT AMBULATES WITH STEADY GAIT TO BATHROOM WITH RN ASSIST. PT DENIES DIZZINESS OR NAUSEA WITH AMBULATION. PT ABLE TO VOID QS AND STATES SHE FEELS READY TO DC.
[2023-07-08 12:05] VITALS: BP 152/74
--- NOTE | 2023-07-08 12:54 | NUR ---
1205: PT WATCHES TV IN STRETCHER. VSS, RESP EVEN AND UNLABORED. SL REMOVED WITH CATH TIP INTACT AND PRESSURE APPLIED TO SITE, WNL. DC INSTRUCTIONS PROVIDED AND DISCUSSED ORDERED. PT VOICES UNDERSTANDING AND DENIES QUESTIONS AND CONCERNS AT THIS TIME. DRESSES INDEPENDENTLY FOR DC. 1220: WHEELED OFF OF UNIT BY DARIEN PEREZ FOR DC. NO PHYSICAL S/S OF DISTRESS
--- NOTE | 2023-07-08 14:33 | OR ---
[facility] [address] [facility] [place] [place] [address] Signed DATE OF OPERATION: 07/08/2023 SURGEON: Rowan Pierce MD PREOPERATIVE DIAGNOSES: 1. History of urosepsis secondary to an obstructing 5 mm left midureteral calculus. 2. Multiple small left renal calculi. POSTOPERATIVE DIAGNOSES: 1. History of urosepsis secondary to an obstructing 5 mm left midureteral calculus. 2. Multiple small left renal calculi. NAME OF PROCEDURES: 1. Diagnostic cystoscopy with left retrograde pyelogram. 2. Left flexible nephroureteroscopy with laser lithotripsy and basket extraction of stone fragments. 3. Left ureteral stent exchange. ANESTHESIA: General. ESTIMATED BLOOD LOSS: Minimal. COMPLICATIONS: None. SPECIMENS: Stone fragments sent to the lab for stone analysis. DRAINS: A new 6 x 26 cm double-J ureteral stent inserted into the left collecting system. INDICATIONS FOR PROCEDURE: Merlyn is a very pleasant 48-year-old female, who is well-known to me. She has a history of recurrent nephrolithiasis and was last seen by me in mid May 2023, after she presented to the emergency department with complaints of left-sided flank pain. She had an active UTI and was also found to be septic. She also tested positive for COVID at that time. She was taken to the operating room on a semiurgent basis and underwent emergent cystoscopy with left ureteral stent insertion. She was then treated Electronically Signed By: ROWAN PIERCE MD 07/08/23 1433 PATIENT NAME: MERLYN BROWN OPERATIVE REPORT DATE OF : 75 REPORT #: [id number] PHYSICIAN: ROWAN PIERCE MD PCP: [facility] LOVE REPORT IS CONFIDENTIAL AND NOT TO BE RELEASED WITHOUT AUTHORIZATION [facility] [address] [place], [place] [address] Signed for her sepsis. She also had to wait one month from the day of her COVID diagnosis in order to qualify for elective surgery. She recently consented to undergo left ureteroscopy with stone extraction now that she has fully recovered from her COVID. She presents today to undergo definitive extraction of her left ureteral and renal calculi. OPERATIVE FINDINGS: 1. On cystoscopy, there was no evidence of any suspicious masses, lesions, or stones. There is an indwelling left ureteral stent in good position. This was removed using the stent grasper. 2. Left retrograde pyelogram revealed no evidence of any calyceal dilation or blunting of the renal calyces. There is a filling defect within the left mid ureter that is consistent with her known ureteral calculus. 3. Left flexible ureteroscopy did reveal an actively obstructing stone in the midportion of the left ureter. This is consistent with her known 5 mm stone. The stone was fragmented using a holmium laser at 8 and 0.6 settings. Some of its stone was dusted and the remaining portion of the stone was extracted intact using a Zero tip basket. 100% of this particular stone was successfully extracted. 4. Left flexible nephroscopy revealed multiple small stones measuring around 1-2 mm. These were also extracted from the left kidney in toto using a Zero tip basket without difficulty. 5. At the end of the procedure, a fresh 6 x 26 cm double-J ureteral stent was inserted into the patient's left collecting system under direct visualization without difficulty. DESCRIPTION OF PROCEDURE: After informed consent was obtained, the patient was taken back to the operating room. She was transferred from the [facility] to the operating room table, where general anesthesia was induced. She was placed in the dorsal lithotomy position and her genitalia were prepped and draped in standard sterile fashion. Using a 30-degree lens on a 22.5-Kiswahili introducer, rigid cystoscope was inserted through the urethra into her bladder under direct visualization. Panendoscopic views of the bladder were then obtained. Please see above findings. The indwelling ureteral stent was removed to the level of the urethral meatus using a stent grasper. A 0.035 Sensor wire was passed into the lumen of the stent and up into the left collecting system. The indwelling stent was removed fully intact and the Sensor wire was now in a good position within the left collecting system. Over the wire, I passed a 13/15 ureteral access sheath into the left ureter. I initially passed the sheath up to the level of the obstructing calculus. I passed my flexible ureteroscope through the sheath and immediately came upon the stone. The stone was fragmented using a holmium laser at 8 and 0.6 settings. Please see above findings. Once the stone was successfully extracted, I reinserted the obturator and the Sensor wire and passed the sheath up further into the left kidney. A left retrograde pyelogram was performed via the sheath. Please see above findings. I then passed a flexible ureteroscope through the sheath and into the left renal pelvis. I performed a Electronically Signed By: ROWAN PIERCE MD 07/08/23 1433 PATIENT NAME: MERLYN BROWN OPERATIVE REPORT DATE OF : 75 REPORT #: [id number] PHYSICIAN: ROWAN PIERCE MD PCP: AB[facility] LOVE REPORT IS CONFIDENTIAL AND NOT TO BE RELEASED WITHOUT AUTHORIZATION [facility] [address] [facility] [place] [address] Signed thorough nephroscopy and located three small 1-2 mm stones present in the midpole of the left kidney. All of these were removed fully intact using a Zero tip basket. I did not visualize any other significant stones that required extraction. However, there is a 2 mm stone present in the upper pole of the kidney that has grown into the calyx, so I was unable to remove it today. However, it should not pose any issue with respect to stone passage in the future. Once I was satisfied that all the stones were successfully extracted, I removed the ureteroscope and reinserted a Sensor wire through the sheath and into the left renal pelvis. The ureteral access sheath was removed fully intact, leaving the Sensor wire behind. Over the wire, I passed a 6 x 26 cm double-J ureteral stent into the left collecting system under direct visualization without difficulty. Once I pulled the wire, I could appreciate an adequate coil within the left renal pelvis. There was also an adequate coil within the bladder on cystoscopy. The stent was placed with a string attached. The string has been secured to her mons pubis. The patient's bladder was then drained and the cystoscope was removed. The procedure was then terminated. The patient tolerated the procedure well without any complication. She will now be transferred to the postanesthesia care unit in stable condition. DISPOSITION: I discussed the details of today's procedure with the patient's and answered all of his questions. I had notified him that the patient may remove her indwelling ureteral stent using the string attached on July 11. She will otherwise be sent home today with Cipro 500 mg p.o. b.i.d. for a total of 7 days along with oxycodone 5 mg one tablet p.o. q.6 hours p.r.n. pain, dispense #25. She will be scheduled to return to clinic in approximately 6 to 8 weeks for postoperative evaluation. At that time, we will discuss the results of her stone analysis. MD JOJO Fernandes/REINIERL /[id number] Copies: ~ Electronically Signed By: ROWAN PIERCE MD 07/08/23 1433 PATIENT NAME: MERLYN BROWN OPERATIVE REPORT DATE OF : 75 REPORT #: [id number] PHYSICIAN: ROWAN PIERCE MD PCP: [facility] LOVE REPORT IS CONFIDENTIAL AND NOT TO BE RELEASED WITHOUT AUTHORIZATION
[2023-07-10 20:30] LABS: CALCULI MASS 58 mg (())
== END 2023-07-08 12:20 | disposition home or self-care (01) ==
LOC: DS 06:50
PROVIDERS: ATTEND Urology
PROC: 0TC18ZZ Extirpation of Matter from Left Kidney, Via Natural or Artificial Opening Endoscopic (ICD-10-PCS; principal; 2023-07-08 09:50)
PROC: 0T768DZ Dilation of Right Ureter with Intraluminal Device, Via Natural or Artificial Opening Endoscopic (ICD-10-PCS; 2023-07-08 09:50)
DX: N20.2 Calculus of kidney with calculus of ureter (principal); I10 Essential (primary) hypertension; E11.9 Type 2 diabetes mellitus without complications; E21.3 Hyperparathyroidism, unspecified; Z88.5 Allergy status to narcotic agent; Z88.6 Allergy status to analgesic agent; Z79.84 Long term (current) use of oral hypoglycemic drugs; Z79.899 Other long term (current) drug therapy
CPT/HCPCS: 00910; 74420; 82365; 84703; 93005; 93010; C1769; C2617; J0131; J0690; J0780; J1790; J2001; J2405; J2704; J3010; J3475; J3490; J7121; Q9967

== ENCOUNTER 2024-05-13 12:15 | Emergency (ER) | payer OTHER ==
[~2024-05-13] VITALS: Ht 170.2 cm; Wt 124.0 kg
[~2024-05-13 12:15] MED LIST changes: +[UNRECOGNIZED DRUG - OTHER] PO
[2024-05-13 12:42] LABS: BILIRUBIN, URINE NEGATIVE (negative); BLOOD/HGB, URINE NEGATIVE (Negative); KETONE, URINE NEGATIVE (Negative); LEUK ESTERASE, URINE TRACE (negative); NITRITE, URINE NEGATIVE (negative)
[2024-05-13] MEDS ORDERED: ACETAMINOPHEN 500 MG TAB PO ONE (12:45)
[2024-05-13] MEDS ORDERED: TAMSULOSIN HCL 0.4 MG CAP PO ONE (12:45)
[2024-05-13 12:50] LABS: BACTERIA, URINE 1+ /hpf (negative); CASTS, URINE NONE SEEN \\lpf; COLLECTION TYPE, URINE CLEAN CATCH; CRYSTALS, URINE NONE SEEN (0-1+); EPITHELIAL CELLS, URINE SQUAMOUS 4+ /lpf (0-1+); RED BLOOD CELLS, URINE 0-1 /hpf (0-5); REFLEX CULTURE, URINE No (No)
[2024-05-13 13:43] VITALS: BP 150/87
== END 2024-05-13 13:47 | disposition home or self-care (01) ==
LOC: ED 12:15
PROVIDERS: Emergency Medicine
DX: R10.9 Unspecified abdominal pain (principal); E11.9 Type 2 diabetes mellitus without complications; I10 Essential (primary) hypertension; Z88.8 Allergy status to other drugs, medicaments and biological substances; Z88.5 Allergy status to narcotic agent; Z88.6 Allergy status to analgesic agent; Z79.84 Long term (current) use of oral hypoglycemic drugs; Z79.52 Long term (current) use of systemic steroids; Z79.899 Other long term (current) drug therapy; Z79.4 Long term (current) use of insulin
CPT/HCPCS: 81001; 99284; A9270

== ENCOUNTER 2024-06-01 11:52 | Day surgery (SDC) | payer OTHER ==
[~2024-06-01] VITALS: Ht 167.6 cm; Wt 125.0 kg
[~2024-06-01 11:52] MED LIST changes: +BANOPHEN25 MG PO; +CEFAZOLIN SODIUM 2 GM/20 ML SYR IV SCH; +COMBIVENT RESPIM4 GM INH; +FEROSUL325 MG PO; +GLIPIZIDE XL10 MG; +IBLOOD GLUCOSE TEST STRIP 1 EA TEST VI PRN; +LACTATED RINGER'S 1,000 ML IV SCH; +LIDOCAINE HCL 1% 5 ML SDV INJ ONE; +MIDAZOLAM HCL 5 MG/5 ML VIAL IV PRN; +OMEPRAZOLE20 MG; +OMEPRAZOLE20 MG PO; +RINVOQ30 MG; +RYBELSUS14 MG PO; +SUDOGEST60 MG PO; +TOUJEO SOL300 UNIT/1; +UROMAG84.5 MG; +VITAMIN C500 M1 PO; +ZANTAC-360 (FAM20 MG PO; +fentaNYL citrate 100 MCG/2 ML VIAL IV PRN
[2024-06-01 12:17] VITALS: BP 137/60
[2024-06-01] MEDS ORDERED: MIDAZOLAM HCL 5 MG/5 ML VIAL ONE (12:57)
[2024-06-01] MEDS ORDERED: fentaNYL citrate 100 MCG/2 ML VIAL ONE (12:57)
--- NOTE | 2024-06-01 13:57 | NUR ---
06/01/24 3556 Mariluz Madsen PT TO PACU AWAKE OFF AND ON. DENIES PAIN AND NAUSES PT PASSING GAS
[2024-06-01 14:31] VITALS: BP 125/70
--- NOTE | 2024-06-02 10:21 | OR ---
[facility] [address], [place] [address] Signed DATE OF OPERATION: 06/01/2024 SURGEON: Johanne Sousa MD PREOPERATIVE DIAGNOSIS: Colon screening. POSTOPERATIVE DIAGNOSES: 1. Sessile large polyp 2 cm at rectosigmoid (12 cm). 2. Diverticulosis sigmoid. PROCEDURE: Total colonoscopy to cecum with hot snare mucosal lift excision of rectosigmoid polyp with Endomark tattoo dye injection. ANESTHESIA: Intravenous sedation; fentanyl 150 mcg, Versed 9 mg. INDICATION: This 49-year-old [place] woman is a patient of Jil Love PA-C from [facility]. She was referred for colon screening. She has no current symptoms of bleeding, diarrhea, or constipation and has no known family history of colon cancer. She is admitted at this time to undergo colonoscopy. She understands the risk of bleeding, infection, and perforation. Additionally, she does have joint replacement for which Ancef 2 g was given preoperatively. FINDINGS: The prep was good. Complete colonoscopy was undertaken to the cecum. She had diverticula of the sigmoid colon. Most notably, she had a 2 cm polyp at the 12 cm evens, considered likely the rectosigmoid. This was excised after mucosal lift with Endomark tattoo dye using hot snare polypectomy technique. There was arterial bleeding at the inferior base of the site for which three hemoclips were used for complete hemostasis. There were no other issues of note. PROCEDURE IN DETAIL: The patient was brought to the endoscopy suite and placed in the lateral decubitus position. She received preoperative antibiotic Ancef. After intravenous sedation with full cardiopulmonary monitoring, digital rectal examination was found to be normal. An Olympus video colonoscope was passed in the rectum and manipulated throughout the Electronically Signed By: JOHANNE SOUSA MD 06/02/24 1021 PATIENT NAME: MERLYN BROWN OPERATIVE REPORT DATE OF : 75 REPORT #: [id number] PHYSICIAN: JOHANNE SOUSA MD PCP: JIL LOVE PAC REPORT IS CONFIDENTIAL AND NOT TO BE RELEASED WITHOUT AUTHORIZATION [facility] [address] [place], [place] [address] Signed colon noting diverticula of the sigmoid and left colon. Scope was ultimately passed to the cecum. Full visualization and intubation of the cecum was accomplished. The scope was withdrawn from that point and examination showed no sign of abnormality other than diverticula of the sigmoid and left colon until the rectosigmoid, where an obvious polypoid lesion was noted. It was relatively large at least 2 cm in size. Using a sclerotherapy needle and Endomark tattoo dye, the central portion of the polyp was injected providing for mucosal lift. Using a hot snare polypectomy technique, the specimen was excised. Noted at the base of the polypectomy site was the dye as expected, but also small arterial bleeding area. This was secured with three separate hemoclips with complete hemostasis irrigation was undertaken. The polyp was large enough that it was simply suctioned and withdrawn from the rectum. Reintroduction of the scope showed the site of polypectomy to be quite hemostatic. The remaining rectum otherwise normal. Scope was removed and the patient was taken to the recovery room in good condition. CONCLUDING DIAGNOSIS: Relatively large polyp of the rectosigmoid at 12 cm, completely excised. PLAN: Would recommend repeat colonoscopy in one year given the size of the polyp. We will certainly assess its histology to better guide therapy as well. We will recommend low fiber diet for the next 48 hours given the issue of the complex polyp resection. MD JASSON Batista/REINIERL /[id number] cc: Jil Love Copies: JIL LOVE PAC ~ Electronically Signed By: JOHANNE SOUSA MD 06/02/24 1021 PATIENT NAME: MERLYN BROWN OPERATIVE REPORT DATE OF : 75 REPORT #: [id number] PHYSICIAN: JOHANNE SOUSA MD PCP: JIL LOVE PAC REPORT IS CONFIDENTIAL AND NOT TO BE RELEASED WITHOUT AUTHORIZATION
--- NOTE | 2024-06-08 12:50 | PATH ---
[facility] [address] [facility] [place] [address] Signed SPECIMEN(S): A RECTOSIGMOID BIOPSY, 15 CM SPECIMEN SOURCE: A. 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 COMMENT: As part of [facility]' Quality Improvement Program, this case was reviewed by another member of our pathology staff. JVR:LETTY:marion MICROSCOPIC EXAMINATION: Histologic sections of all submitted blocks are examined by light microscopy. These findings, together with the gross examination, support the pathologic diagnosis. GROSS DESCRIPTION: The specimen, labeled and designated "Shar, rectosigmoid colon biopsy at 15 cm," is received in formalin and consists of one muniz soft tissue fragment, 1.5 cm. Entirely submitted in (A1-A2). JS (under the direct supervision of a pathologist) The Gross Description was prepared using a voice recognition system. The report was reviewed for accuracy; however, sound-alike word errors, addition and/or deletions may occur. If there is any question about this report, please contact Client Services. PERFORMING LABORATORY: Technical component was performed by [facility], [address] [place] [id number] (CLIA# [id number]). Professional interpretation was performed by [facility], [address] [place] [address], [place] [address] (CLIA#: [id number]). Diagnostician: Mehrdad Corona MD Pathologist PATIENT NAME: MERLYN BROWN PATHOLOGY DATE OF : 75 REPORT #: [id number] PHYSICIAN: FRANCIS PATHOLOG[facility] PCP: ABNER LOVE PAC REPORT IS CONFIDENTIAL AND NOT TO BE RELEASED WITHOUT AUTHORIZATION [facility] [address] [place] [id number] Signed Electronically Signed 06/08/2024 Copies: ~ PATIENT NAME: MERLYN BROWN PATHOLOGY DATE OF : 75 REPORT #: [id number] PHYSICIAN: FRANCIS PATHOLOGY PCP: ABNER LOVE PAC REPORT IS CONFIDENTIAL AND NOT TO BE RELEASED WITHOUT AUTHORIZATION
== END 2024-06-01 14:45 | disposition home or self-care (01) ==
LOC: OPS 11:52 → DS 11:52 → OPS 11:55 → MS 11:55 → DS 13:00 → OPS 13:00
PROVIDERS: ATTEND Surgery
PROC: 0DBN8ZZ Excision of Sigmoid Colon, Via Natural or Artificial Opening Endoscopic (ICD-10-PCS; principal; 2024-06-01 13:00)
DX: Z12.11 Encounter for screening for malignant neoplasm of colon (principal); D12.7 Benign neoplasm of rectosigmoid junction; K57.30 Diverticulosis of large intestine without perforation or abscess without bleeding; M06.9 Rheumatoid arthritis, unspecified; I10 Essential (primary) hypertension; Z96.659 Presence of unspecified artificial knee joint; Z87.442 Personal history of urinary calculi; Z88.5 Allergy status to narcotic agent; Z88.8 Allergy status to other drugs, medicaments and biological substances
CPT/HCPCS: 36415; 84703; 99153; G0500; J0690; J2250; J3010; J7121

== ENCOUNTER 2025-05-11 10:53 | Day surgery (SDC) | payer OTHER ==
[~2025-05-11] VITALS: Ht 167.6 cm; Wt 116.0 kg
[~2025-05-11 10:53] MED LIST changes: -CEFAZOLIN SODIUM 2 GM/20 ML SYR IV SCH; -RINVOQ30 MG; +RINVOQ30 MG PO; -UROMAG84.5 MG; +UROMAG84.5 MG PO
[2025-05-11] MEDS ORDERED: OZEMPIC2 MG/0.75 SUB-Q (11:30)
[2025-05-11] MEDS ORDERED: HYDROCODON-ACE1 EA10 PO (11:34)
[2025-05-11] MEDS ORDERED: ESTRACE0.5 MG PO (11:34)
[2025-05-11] MEDS ORDERED: PROGESTERONE200 MG PO (11:35)
[2025-05-11] MEDS ORDERED: fentaNYL citrate 100 MCG/2 ML VIAL ONE (11:35)
[2025-05-11] MEDS ORDERED: ASCORBIC ACID500 M3 PO (11:35)
[2025-05-11] MEDS ORDERED: MIDAZOLAM HCL 5 MG/5 ML VIAL ONE (11:36)
[2025-05-11 11:38] VITALS: BP 124/75
[2025-05-11] MEDS ORDERED: TERBINAFINE HC250 MG PO (11:40)
[2025-05-11] MEDS ORDERED: CEFAZOLIN SODIUM 2 GM/20 ML SYR ONE (11:54)
[2025-05-11] MEDS ORDERED: GLUCAGON,HUMAN RECOMBINANT 1 MG/ML VIAL ONE (12:47)
--- NOTE | 2025-05-11 13:13 | NUR ---
05/11/25 1313 Janet Vizcarra 1308: PT ARRIVES TO PACU REACTIVE, BUT DROWSY. REPORT RECEIVED FROM [facility]
[2025-05-11 13:38] VITALS: BP 128/90
[2025-05-12] MEDS ORDERED: CEFAZOLIN SODIUM 2 GM/20 ML SYR IV ONE (07:00)
--- NOTE | 2025-05-12 13:47 | OR ---
[facility] [address] [place], [place] [address] Signed DATE OF OPERATION: 05/11/2025 SURGEON: Johanne Sousa MD PREOPERATIVE DIAGNOSES: 1. History of 2 cm polyp at 12 cm in 2023 (tubular adenoma with high-grade dysplasia). 2. Morbid obesity. POSTOPERATIVE DIAGNOSIS: 1. Small recurrent or persistent polyp at 12 cm (excised). 2. Newly discovered linear multilobulated polyp of cecum. 3. Diverticulosis of sigmoid. PROCEDURES: 1. Total colonoscopy to cecum with mucosal lift, hot snare polypectomy of cecal polyp (difficult) with application of spot dye and application of hemoclip. 2. Small portion of recurrent polyp at 12 cm (excised). INDICATION: This morbidly obese 50-year-old woman is a patient of Jil Love at [facility] and in [address], where she was found to have a large 2 cm polyp was at 12 cm which was excised in the site marked with Endo evens tattoo dye. Pathology confirmed a tubular adenoma with high-grade dysplasia. She has no current symptoms of bleeding, diarrhea or constipation. A short-term surveillance colonoscopy is recommended based on the findings previously. The risk of bleeding, infection, perforation, and so forth were reviewed with her in detail. She understands and wished to proceed. FINDINGS: Indeed, there was some residual polypoid tissue at the area of previous excision of 12 cm. This area was excised with hot snare technique completely. Not seen or appreciated previously but present on this occasion in the cecum was a linear multilobulated adenomatous polyp. This was excised dominantly with mucosal lift technique using Endo evens tattoo dye and application of hemoclip at conclusion. The polyp was certainly greater than a cm and was sessile pedunculated. Diverticula were noted in the sigmoid as well. DESCRIPTION OF PROCEDURE: The patient was brought to the endoscopy suite and placed in lateral decubitus position, Electronically Signed By: JOHANNE SOUSA MD 05/12/25 1347 PATIENT NAME: MELRYN BROWN OPERATIVE REPORT DATE OF : 75 REPORT #: [id number] PHYSICIAN: JOHANNE SOUSA MD PCP: JIL LOVE PAC REPORT IS CONFIDENTIAL AND NOT TO BE RELEASED WITHOUT AUTHORIZATION [facility] [address], [place] [address] Signed given intravenous sedation to the point of slurred speech and nystagmus for cardiopulmonary monitoring. Digital rectal examination was normal. An Olympus video colonoscope was passed in the rectum and manipulated throughout the colon noting diverticula of the sigmoid. The scope was ultimately passed to the right colon. Various maneuvers were required to allow for intubation of the cecum. To my surprise, there was a polypoid linear lesion of the cecum. Difficulty in maintaining intubation the cecum was noted despite abdominal wall stabilization and other measures. She was ultimately given 1 mg of glucagon to still the bowel. It may have been beneficial uncertain. Ultimately, using a sclerotherapy needle the central portion of the polyp was injected with Endo evens tattoo dye allowing for mucosal lift. Using hot snare polypectomy technique, the lesion was excised taking two full measures of snare polypectomy to excise it completely. Although, there was no active bleeding. The mucosa was reapproximated in one portion with an Endo clip. The polypoid tissue was then placed in a Jara net and extracted carefully pulling along as the remaining colon was inspected. Found approximately 12 cm of previous polypectomy site, which had residual tattoo dye. This showed a small residual or new polyp. The polyp from the cecum was offloaded. Reintroduction of the scope allowed for good manipulation to position the area in question allowing for hot snare polypectomy technique. A hemoclip was not easily deployed though it was attempted. Retroflexed view of the rectum was normal. The scope was removed. The patient was taken to the recovery room in good condition. CONCLUDING DIAGNOSES: 1. New complex polyp of the cecum excised completely (prolonged, complicated, difficult). 2. Small amount of residual polyp at previous polypectomy site at 12 cm. PLAN: Recommend repeat colonoscopy in 1 to 2 years. Would consider using propofol for sedation will support in the future. We will check pathology report interval of time for repeat would be 1 to 2 years. We will see patient back in office in one year. MD JASSON Batista/DEVYN /[id number] Electronically Signed By: JOHANNE SOUSA MD 05/12/25 1347 PATIENT NAME: MERLYN BROWN OPERATIVE REPORT DATE OF : 75 REPORT #: [id number] PHYSICIAN: JOHANNE SOUSA MD PCP: JIL LOVE PAC REPORT IS CONFIDENTIAL AND NOT TO BE RELEASED WITHOUT AUTHORIZATION [address] [address] Signed cc: Jil Love RUST Copies: ~ Electronically Signed By: JOHANNE SOUSA MD 05/12/25 1347 PATIENT NAME: MERLYN BROWN OPERATIVE REPORT DATE OF : 75 REPORT #: [id number] PHYSICIAN: JOHANNE SOUSA MD PCP: JIL LOVE PAC REPORT IS CONFIDENTIAL AND NOT TO BE RELEASED WITHOUT AUTHORIZATION
--- NOTE | 2025-05-14 08:04 | PATH ---
[facility] [address] [facility] [place], [place] [address] Signed SPECIMEN(S): A CECUM POLYP SPECIMEN(S): B SIGMOID POLYP SPECIMEN SOURCE: A. CECUM POLYP B. SIGMOID POLYP CLINICAL HISTORY: Sessile colon polyp. Postop-sessile cecal polyp, "illegible word "recurrent sigmoid polyp. A/B) polyp FINAL PATHOLOGIC DIAGNOSIS: A. Cecal polyp: - Tubular adenoma. - Negative for high-grade dysplasia or malignancy. B. Sigmoid colon polyp: - Tubular adenoma. - Negative for high-grade dysplasia or malignancy. [facility] MICROSCOPIC EXAMINATION: Histologic sections of all submitted blocks are examined by light microscopy. These findings, together with the gross examination, support the pathologic diagnosis. GROSS DESCRIPTION: A. The specimen, labeled and designated "Shar, cecum polyp," is received in formalin and consists of two muniz soft tissue fragments, ranging from 0.3-1.5 cm. The largest polyp is bisected. No margin is grossly identified. Entirely submitted in (A1). B. The specimen, labeled and designated "Shar, sigmoid polyp," is received in formalin and consists of two muniz soft tissue fragments, ranging from 0.3-0.5 cm. Entirely submitted in (B1). AB (under the direct supervision of a pathologist) The Gross Description was prepared using a voice recognition system. The report was reviewed for accuracy; however, sound-alike word errors, addition and/or deletions may occur. If there is any question about this report, please contact Client Services. ADDITIONAL NOTES: PATIENT NAME: MERLYN BROWN PATHOLOGY DATE OF : 75 REPORT #: [id number] PHYSICIAN: FRANCIS JUNIOR PCP: ABNER LOVE PAC REPORT IS CONFIDENTIAL AND NOT TO BE RELEASED WITHOUT AUTHORIZATION [address], [place] [address] Signed Immunohistochemical and/or in situ hybridization studies if performed in this case included appropriate positive controls that reacted as expected. This test was developed and its performance characteristics determined by [facility]. It has not been cleared or approved by the U.S. Food and Drug Administration. The FDA has determined that such clearance or approval is not necessary. This test is used for clinical purposes. It should not be regarded as investigational or for research. [facility] is certified under the Clinical Laboratory Improvement Amendments of 1988 (CLIA) as qualified to perform high complexity clinical laboratory testing. PERFORMING LABORATORY: Technical component was performed by [facility], [address] [place] [id number] (CLIA# [id number]). Professional interpretation was performed by [facility], [address] [place] [id number] (CLIA#: [id number]). Diagnostician: Tee Ibarra MD Pathologist Electronically Signed 05/14/2025 Copies: ~ PATIENT NAME: MERLYN BROWN PATHOLOGY DATE OF : 75 REPORT #: [id number] PHYSICIAN: FRANCIS JUNIOR PCP: ABNER LOVE PAC REPORT IS CONFIDENTIAL AND NOT TO BE RELEASED WITHOUT AUTHORIZATION
== END 2025-05-11 13:45 | disposition home or self-care (01) ==
LOC: DS 10:53
PROVIDERS: ATTEND Surgery
PROC: 3E0H8GC Introduction of Other Therapeutic Substance into Lower GI, Via Natural or Artificial Opening Endoscopic (ICD-10-PCS; 2025-05-11)
PROC: 0DBH8ZZ Excision of Cecum, Via Natural or Artificial Opening Endoscopic (ICD-10-PCS; principal; 2025-05-11 12:00)
DX: D12.5 Benign neoplasm of sigmoid colon (principal); D12.0 Benign neoplasm of cecum; K57.30 Diverticulosis of large intestine without perforation or abscess without bleeding; E11.9 Type 2 diabetes mellitus without complications; K21.9 Gastro-esophageal reflux disease without esophagitis; I10 Essential (primary) hypertension; M06.89 Other specified rheumatoid arthritis, multiple sites; E66.01 Morbid (severe) obesity due to excess calories; Z68.41 Body mass index [BMI] 40.0-44.9, adult; Z86.0101 Personal history of adenomatous and serrated colon polyps; Z79.4 Long term (current) use of insulin; Z79.84 Long term (current) use of oral hypoglycemic drugs; Z79.899 Other long term (current) drug therapy; Z88.6 Allergy status to analgesic agent; Z88.5 Allergy status to narcotic agent; Z88.8 Allergy status to other drugs, medicaments and biological substances
CPT/HCPCS: 84703; 99153; C1889; G0500; J0690; J1610; J2250; J3010; J7121